=== PATIENT | male | born 1995 | race Caucasian/White ===

== ENCOUNTER 2020-08-06 09:56 | Emergency (ER) | payer BC, OTHER ==
[~2020-08-06] VITALS: Ht 193 cm; Wt 108.9 kg
[~2020-08-06 09:56] MED LIST: PROTONIX40 MG PO; ZOFRAN ODT4 MG PO; ZOFRAN ODT8 MG PO
[2020-08-06] MEDS ORDERED: PROMETHAZINE HC25 M1 PO (10:10)
[2020-08-06] MEDS ORDERED: FLOMAX0.4 MG PO (10:11)
--- OUTSIDE RECORDS SUMMARY | 2020-08-06 11:36 | XMS ---
PreManage Notification: RAS SULTANA Security It Systems Analyst Consultant Events No recent Security Events currently on file CRITERIA MET - [facility] - 3 Facilities in 90 Days - [facility] - 2 Visits in 30 Days CARE PROVIDERS [facility] Pediatrics Current [facility] PHONE: [phone] Jerrica Gong Urologaidan Current Zohreh PHONE: [phone] Jorge has no Care Guidelines for this patient. E.Mike VISIT COUNT (12 MO.) [address] - Serena Alonso TOTAL 3 NOTE: Visits indicate total known visits. ED/UCC VISIT TRACKING (12 MO.) 08/06/2020 09:56 [facility] [place] TYPE: Emergency COMPLAINT: - POST OP PROBLEM 07/30/2020 18:34 [facility] TYPE: Emergency DIAGNOSES: - Vomiting - Nausea with vomiting, unspecified - Unspecified abdominal pain - Flank Pain - Calculus of ureter - Vomitting; Kidney Stones 07/28/2020 14:37 [facility] LARRY Alonso TYPE: Emergency DIAGNOSES: 0. Unspecified abdominal pain 0. Nausea with vomiting, unspecified 0. FLANK PAIN 1. Hydronephrosis with renal and ureteral calculous obstruction INPATIENT VISIT TRACKING (12 MO.) 07/30/2020 23:51 [facility] TYPE: General Medicine DIAGNOSES: - ureteral stone [email or web address]
[2020-08-06] MEDS ORDERED: ONDANSETRON ODT4 MG PO (13:52)
== END 2020-08-06 14:37 | disposition home or self-care (01) ==
LOC: ED 09:56
PROC: 4A0D7LZ Measurement of Urinary Volume, Via Natural or Artificial Opening (ICD-10-PCS; principal; 2020-08-06)
DX: R31.0 Gross hematuria (principal); R06.6 Hiccough; Z46.6 Encounter for fitting and adjustment of urinary device
CPT/HCPCS: 51798; 74018; 80048; 81001; 85025; 99283-25; J1885; J2405; J7030

== ENCOUNTER 2024-08-24 17:39 | Emergency (ER) | payer MEDICAID ==
[~2024-08-24] VITALS: Ht 193 cm; Wt 119.0 kg
[~2024-08-24 17:39] MED LIST changes: +FLOMAX0.4 MG PO; +ONDANSETRON ODT4 MG PO; +PROMETHAZINE HC25 M1 PO
--- OUTSIDE RECORDS SUMMARY | 2024-08-24 17:42 | XMS ---
PreManage Notification: RAS SULTANA Security Nanotechnology Engineering Technician Events No recent Security Events currently on file CRITERIA MET - [facility] - 2 Visits in 30 Days CARE PROVIDERS [facility]: Multi-Specialty 09/03/2022-[facility] MEDICAL PHONE: [phone] LINK [facility] 08/07/2020-Current PHONE: Unknown YAKELIN ROTH Porcelain Technician/Geriatric Social Worker [facility] TEAM PHONE: Unknown Jorge has no Care Guidelines for this patient. E.D. VISIT COUNT (12 MO.) 1 [facility] T[facility] 2 NOTE: Visits indicate total known visits. ED/UCC VISIT TRACKING (12 MO.) 08/24/2024 17:40 JOHN Thomason TYPE: Emergency COMPLAINT: - ABDOMINAL PAIN 08/22/2024 16:10 [facility] DIAGNOSES: - Cyclical vomiting syndrome unrelated to migraine - Dehydration - Emesis - throwing up INPATIENT VISIT TRACKING (12 MO.) No inpatient visits to display in this time frame [email or web address]
[2024-08-24] MEDS ORDERED: HYDROmorphone HCL 1 MG/ML SYR IV PRN (18:00)
[2024-08-24] MEDS ORDERED: diphenhydrAMINE HCL 50 MG/ML VIAL IV ONE (18:00)
[2024-08-24] MEDS ORDERED: ondansetron HCL 4 MG TAB PO ONE (18:00)
[2024-08-24] MEDS ORDERED: SODIUM CHLORIDE 0.9% 1,000 ML IV ONE (18:00)
[2024-08-24] MEDS ORDERED: LORazepam 2 MG/ML VIAL IV ONE (18:00)
[2024-08-24 18:04] LABS: BASOPHILS 0.5 % (0-2); EOSINOPHILS 0.2 % (0-6); HEMATOCRIT 46.6 % (35.0-50.0); HEMOGLOBIN 16.6 g/dL (12.0-18.0); LYMPHOCYTES 18.4 % (24-44); MCH 30.7 (27-36); MCHC 35.5 g/dl (30-36); MCV 86.3 fl (81-99); MONOCYTES 6.2 % (0-12); NEUTROPHILS 74.7 % (39-80); PLATELET COUNT 267 K/uL (140-440); RDW 13.3 (10.5-15.0)
[2024-08-24] MEDS ORDERED: ondansetron HCL 4 MG/2 ML VIAL IV ONE (18:15)
[2024-08-24 18:18] LABS: ALBUMIN 4.7 g/dL (3.4-5.0); ALBUMIN/GLOBULIN RATIO 1.34 (1.1-2.4); ANION GAP 15.4 (7-21); BILIRUBIN, TOTAL 1.1 mg/dL (0.2-1.0); BUN/CREATININE RATIO 18.75 (6.0-28.6); CALCIUM 9.4 mg/dL (8.5-10.1); CREATININE, SERUM 0.96 mg/dL (0.70-1.30); POTASSIUM 3.4 mmol/L (3.5-5.1); PROTEIN, TOTAL 8.2 g/dL (6.4-8.2)
[2024-08-24] MEDS ORDERED: ONDANSETRON HCL4 MG PO (18:48)
[2024-08-24] MEDS ORDERED: PROTONIX40 MG PO (18:48)
[2024-08-24 18:58] VITALS: BP 147/82
[2024-08-25] MEDS ORDERED: HYDROCODON-ACE1 EA10 PO (13:32)
[2024-08-25] MEDS ORDERED: ATIVAN0.5 MG PO (13:32)
== END 2024-08-24 18:55 | disposition home or self-care (01) ==
LOC: ED 17:39
PROVIDERS: Emergency Medicine
DX: K29.00 Acute gastritis without bleeding (principal); Z87.442 Personal history of urinary calculi
CPT/HCPCS: 36415; 80053; 83690; 85025; 96361; 96374; 96375; 99284-25; J1171; J1200; J2060; J2405; J7030

== ENCOUNTER 2024-08-25 07:53 | Emergency (ER) | payer MEDICAID ==
[~2024-08-25] VITALS: Ht 193 cm; Wt 101.7 kg
[~2024-08-25 07:53] MED LIST changes: +ONDANSETRON HCL4 MG PO
--- OUTSIDE RECORDS SUMMARY | 2024-08-25 07:59 | XMS ---
PreManage Notification: RAS SULTANA Security Supervisor Road Administrator Events No recent Security Events currently on file CRITERIA MET - [facility] - 2 Visits in 30 Days CARE PROVIDERS [facility]: Multi-Specialty 09/03/2022-[facility] MEDICAL PHONE: [phone] LINK [facility] 08/07/2020-Current PHONE: Unknown YAKELIN ROTH Seed Buyer/Scoring Machine Operator [facility] TEAM PHONE: Unknown Jorge has no Care Guidelines for this patient. E.D. VISIT COUNT (12 MO.) 2 JOHN Hamilton [facility] ([facility] TOTAL 3 NOTE: Visits indicate total known visits. ED/UCC VISIT TRACKING (12 MO.) 08/25/2024 07:53 [facility] [place] TYPE: Emergency COMPLAINT: - ABDOMINAL PAIN 08/24/2024 17:40 [facility] [place] TYPE: Emergency COMPLAINT: - ABDOMINAL PAIN 08/22/2024 16:10 [facility] [place] (Andrei ) TYPE: Emergency DIAGNOSES: - Cyclical vomiting syndrome unrelated to migraine - Dehydration - Emesis - throwing up INPATIENT VISIT TRACKING (12 MO.) No inpatient visits to display in this time frame [email or web address]
[2024-08-25] MEDS ORDERED: HYDROmorphone HCL 1 MG/ML SYR IV PRN (08:15)
[2024-08-25] MEDS ORDERED: ondansetron HCL 4 MG/2 ML VIAL IV ONE ×2 (08:15→11:00)
[2024-08-25] MEDS ORDERED: LORazepam 2 MG/ML VIAL IV ONE (08:30)
[2024-08-25] MEDS ORDERED: SODIUM CHLORIDE 0.9% 1,000 ML IV PRN ×2 (08:30→12:00)
[2024-08-25] MEDS ORDERED: diphenhydrAMINE HCL 50 MG/ML VIAL IV ONE (08:30)
[2024-08-25 08:38] LABS: BASOPHILS 0.6 % (0-2); EOSINOPHILS 0.4 % (0-6); HEMATOCRIT 43.8 % (35.0-50.0); HEMOGLOBIN 15.6 g/dL (12.0-18.0); LYMPHOCYTES 17.3 % (24-44); MCH 30.5 (27-36); MCHC 35.5 g/dl (30-36); MCV 85.9 fl (81-99); MONOCYTES 7.5 % (0-12); NEUTROPHILS 74.2 % (39-80); PLATELET COUNT 249 K/uL (140-440); RDW 13.1 (10.5-15.0)
[2024-08-25 08:53] LABS: ALBUMIN 4.1 g/dL (3.4-5.0); ALBUMIN/GLOBULIN RATIO 1.21 (1.1-2.4); ANION GAP 14.4 (7-21); BILIRUBIN, TOTAL 1.2 mg/dL (0.2-1.0); BUN/CREATININE RATIO 18.88 (6.0-28.6); CALCIUM 8.9 mg/dL (8.5-10.1); CREATININE, SERUM 0.9 mg/dL (0.70-1.30); POTASSIUM 3.4 mmol/L (3.5-5.1); PROTEIN, TOTAL 7.5 g/dL (6.4-8.2)
[2024-08-25] MEDS ORDERED: HYDROmorphone HCL 1 MG/ML SYR IV ONE (11:00)
[2024-08-25] MEDS ORDERED: ACETAMINOPHEN 500 MG TAB PO PRN (11:00)
[2024-08-25] MEDS ORDERED: ATIVAN0.5 MG PO (13:32)
[2024-08-25] MEDS ORDERED: HYDROCODON-ACE1 EA10 PO (13:32)
[2024-08-25 13:45] VITALS: BP 132/89
--- NOTE | 2024-08-25 22:20 | EKG ---
[facility] [address] [facility] [place] [address] Signed Sinus bradycardia with sinus arrhythmia Otherwise normal ECG No previous ECGs available Confirmed by Kwabena Carney MD () on 08/25/2024 10:20:21 PM Electronically Signed By: KWABENA CARNEY MD 08/25/242219 PATIENT NAME: RAS SULTANA Electrocardiogram DATE OF : [birth year] PHYSICIAN: KWABENA CARNEY MD REPORT #: [id number] REPORT IS CONFIDENTIAL AND NOT TO BE RELEASED WITHOUT AUTHORIZATION
== END 2024-08-25 13:45 | disposition home or self-care (01) ==
LOC: ED 07:53
PROVIDERS: Emergency Medicine
DX: K29.70 Gastritis, unspecified, without bleeding (principal); Z79.899 Other long term (current) drug therapy
CPT/HCPCS: 36415; 71045; 74177; 76705; 80053; 83690; 85025; 93005; 93010; 96361; 96375; 96376; 99284-25; J1171; J1200; J2060; J2405; J7030; Q9967